=== PATIENT | male | born 1990 | race Caucasian/White ===

== ENCOUNTER 2024-06-08 18:50 | Emergency (ER) | payer OTHER, SELFPAY ==
[2024-06-08 18:58] VITALS: BP 148/79; PULSE 55; RESP 18; TEMP 36.2; O2SAT 97; BMI 28.1
--- NOTE | 2024-06-08 18:59 | ED_ITS ---
HPI - General Adult General Date Seen: 06/08/24 Chief complaint: Skin/Abscess/Foreign Body Stated complaint: left foot swollen toe; double in size Time Seen by Provider: 06/08/24 18:54 History of Present Illness HPI narrative: 33yo M with a h.o depression, panic attacks, hernia repair, tonsillectomy, but no history of diabetes or immunosuppression who presents to the ER today with redness, pain, and swelling of the skin of his left great toe, around the toenai l. He does have chronically short toenails and said he has had ingrown toenail for several years. Beginning last week and began to have some redness and swelling on the medial aspect of that toenail on the skin on the medial side. It has gotten steadily worse over the past several days. He has been trying to take care of at home by soaking it. He has noted that after soaking he has been able to express a little bit of clear drainage from under the skin along the medial edge of the toenail plate. Today he has noted that the redness is now spread from the medial and to the proximal end of the toenail plate and a little bit on the lateral side of the toenail plate as well. His whole to hold feels a little bit more swollen than normal. No redness spreading up his foot. He is not having any fever or chills. No known trauma. Related Data Previous Rx's ?Medication ?Instructions ?Recorded cephalexin 500 mg capsule 500 mg PO QID #28 caps 06/08/24 doxycycline monohydrate 100 mg 100 mg PO BID #14 caps 06/08/24 capsule Allergies Allergy/AdvReac Type Severity Reaction Status Date / Time amoxicillin AdvReac Unknown Vomiting Verified 06/08/24 18:57 [facility] Social History Smoking Status: Former smoker How often do you have a drink containing alcohol: never AUDIT-C Alcohol total score: 0 Non-prescribed substance use: denies use Exam Narrative: Exam Narrative: Constitutional: Appears well-developed and well-nourished. Active. Non-toxic appearing. Pleasant and polite. HENT: Head: Atraumatic. No signs of injury. Nose: No nasal discharge. Mouth/Throat: Mucous membranes are moist. Pharynx is normal. Tonsils symmetric. Uvula midline. Airway patent. Eyes: Conjunctivae normal and EOM are normal. Pupils are equal, round, and reactive to light. Right eye exhibits no discharge. Left eye exhibits no discharge. No icterus. Neck: Normal range of motion. Neck supple. No adenopathy. No stridor. Cardiovascular: Normal rate and regular rhythm. No murmur heard. No murmurs, rubs, or gallops. Brisk capillary refill normal DP pulses. Pulmonary/Chest: Effort normal. No stridor. No respiratory distress. No wheezes.No rhonchi. No rales. Musculoskeletal: Normal range of motion. No edema. No tenderness. No deformity. He does have redness and swelling of the skin adjacent to the toenail plate of his left great toe. There is predominant redness and swelling on the skin adjacent to the medial aspect of the toenail but also some redness and swelling on the proximal and lateral aspect of the toenail. When I palpate he is tender over the skin lateral to the toenail. I am able to express tiny drops of clear/yellow fluid. No other purulent fluid collection. No crepitus or gas in the soft tissue. There is no bruising. No so subungual hematoma Normal range of motion in the IP and MTP joint. Neurological: Alert. Normal strength. No cranial nerve deficit or sensory deficit. Coordination normal. GCS eye subscore is 4. GCS verbal subscore is 5. GCS motor subscore is 6. Skin: Skin is warm. No rash noted. Const: Vital Signs, click to edit/add: Vital Signs - 24 hr 06/08/24 18:58 Temperature 97.1 F L Pulse Rate [Pulse Oximeter] 55 L Respiratory Rate 18 Blood Pressure [Ri ght Upper Arm] 148/79 H Pulse Oximetry 97 Oxygen Delivery Me thod Room Air Course Vital Signs Vital signs: Initial Vital Signs Temperature 97.1 F L 06/08/24 18:58 Temperature Source Temporal Artery Scan 06/08/24 18:58 Pulse Rate 55 L 06/08/24 18:58 Pulse Rhythm Regular 06/08/24 18:58 Respiratory Rate 18 06/08/24 18:58 Blood Pressure 148/79 H 06/08/24 18:58 Blood Pressure Mean 102 06/08/24 18:58 Blood Pressure Position Sitting 06/08/24 18:58 Pulse Oximetry 97 08/18/24 18:58 Oxygen Delivery Method Room Air 06/08/24 18:58 Vital Signs Temperature 97.1 F L 06/08/24 18:58 Pulse Rate 55 L 06/08/24 18:58 Respiratory Rate 18 06/08/24 18:58 Blood Pressure 148/79 H 06/08/24 18:58 Pulse Oximetry 97 06/08/24 18:58 Oxygen Delivery Method Room Air 06/08/24 18:58 Temperature 97.1 F L 06/08/24 18:58 Pulse Rate 55 L 06/08/24 18:58 Respiratory Rate 18 06/08/24 18:58 Blood Pressure 148/79 H 06/08/24 18:58 Pulse Oximetry 97 06/08/24 18:58 Oxygen Delivery Method Room Air 06/08/24 18:58 Medications Administered Medications: Generic Name Dose Route Start Last Admin Trade Name Ezequiel PRN Reason Stop Dose Admin Cephalexin HCl 500 mg 06/08/24 19:25 06/08/24 19:32 Cephalexin 500 Mg Capsule PO 06/08/24 19:26 500 mg ONCE ONE Administration Doxycycline Hyclate 100 mg 06/08/24 19:25 06/08/24 19:32 Doxycycline Hyclate 100 Mg PO 06/08/24 19:26 100 mg ONCE ONE Administration Medical Decision Making MDM Narrative Medical decision making narrative: Pleasant 33-year-old generally healthy male presenting to the ER today with redness and swelling and pain affecting his left great toenail. Exam is consistent with paronychia. Patient does report that he has always kept his toenails trimmed very short for his entire life. He clearly has signs of an ingrown toenail there was a cause. At this point he is already spontaneously draining the purulent fruit for under the skin medial to his toenail plate. At this point I do not think he would benefit from an incision and drainage. Patient agrees and would like to avoid any surgical procedure over toenail removal, if possible. He is clinically nontoxic. Based on the amount of surrounding redness I do think he has a paronychia with cellulitis. Will put him on antibiotics. He does have a recent trip to [place] tells it with exposure to fresh water there. Therefore will cover him with cephalexin for typical skin estephania. Doxycycline for potential water borne estephania. First doses of antibiotics administered here in the ER. Prescription to his pharmacy. He will fill his additional meds and take his next dose is tomorrow morning. At this point I do not think he needs IV antibiotics. No history of trauma so I do not think there is a need for x-rays to look for fracture. Low likelihood of osteomyelitis. Discussed with the patient that there is a chance that this pus pocket will continue to recur and LEs it is incised and that he may potentially even need removal of his toenail for this to heal. However he would prefer to hold off on those procedures for now, and I think that is reasonable. Therefore will start him on antibiotics. Recommend follow-up with his primary care provider or with Podiatry after 72 hours if not dramatically improved. Return to the ER right away if worsening. He can also come back to the ER for recheck if he is not able to get into his primary or with Podiatry at the 72 hour heidy. Discharge Plan Discharge Clinical Impression: Paronychia Patient Disposition: Home, Self-Care Condition: Stable Instructions: Paronychia (ED) Additional Instructions: As we discussed, if your infection is not getting better within 72 hours please see your doctor or follow up with Podiatry. If you would like to see a oceanographer assistant in [place] you can call Dr. Harshal Hall at the [facility]. [phone] If you have worsening signs of infection such as spreading redness, worsening pain, high fevers, or any problems, come back to the ER right away. If you are not able to get follow-up with your doctor, you can come back to the ER any time for a recheck Prescriptions: New cephalexin 500 mg capsule 500 mg PO QID Qty: 28 0RF doxycycline monohydrate 100 mg capsule 100 mg PO BID Qty: 14 0RF Stand Alone Forms: [employer] Info Instructions
[2024-06-08] MEDS: DOXYCYCLINE HYCLATE 100 MG PO (19:32)
[2024-06-08] MEDS: cephALEXin 500 MG CAPSULE PO (19:32)
--- OUTSIDE RECORDS SUMMARY | 2024-06-08 19:47 | XMS_ITS | Clinical Summary ---
Author Organization [facility] Address [place], [place] [address] Care Team Providers Care Neonatal Pediatric Nurse Name Role Phone [facility] Primary Care Provider Unavailabl e Allergies Active Allergy Reactions Criticality Noted Date Comments Penicillins Vomiting 08/24/2019 Medications Medication Sig Dispensed Refills Start Date End Date Status famotidine (PEPCID) 20 mg tablet Take 1 Tablet (20 mg) by mouth once daily. 05/07/2023 Active Active Problems Problem Noted Date Diagnosed Date Substance abuse 09/18/2011 Moderate recurrent major depression 02/21/2010 Hydrocele, unspecified 04/19/2007 Attention deficit disorder without mention of hy peractivity 02/06/2007 Chronic tonsillitis Panic attacks/Depression Resolved Problems Problem Noted Date Diagnosed Date Resolved Date Tobacco use disorder 09/16/2007 023 Routine or child health check 10/23/2022 Immunizations Name Administration Dates Next Due DTP 05/22/1995, 2,07/31/1991,04/25/1991 ,1990 HIB PRP-T (ActHIB,Hiberix) 07/31/1991 Hepatitis B (Peds) 07/06/2004,05/29/2003, 002,1990 Influenza, IIV3 (Age >=3 years) 08/25/2005 MMR 02/09/2017,05/13/2002,07/01/1992 ,1990 Meningococcal Vaccine (Menactra) 08/25/2005 Oral Polio Vaccine 07/01/1992,07/31/1991, 991,1990 Td (Age >=7 Years) 05/13/2002,1990 Tdap 05/24/2023,04/30/2012 Social History Tobacco Use Types Packs/Day Years Used Date Smoking Tobacco: Former Cigarettes Q uit: 06/20/2012 Smokeless Tobacco: Never Tobacco Cessation:Counseling Given: Not Answered Comments:less than 1 pack a week Alcohol Use Standard Drinks/Week Comments No 0 (1 standard drink = 0.6 oz pur e alcohol) PHQ-2 Answer Date Recorded PHQ-2 TOTAL SCORE 0 05/24/2023 Social Connections Answer Date Recorded Frequency of Communication with Friends and Fami ly Not on file 10/22/2021 Financial Resource Strain Answer Date R ecorded Difficulty of Paying Living Expenses Not on file 10/22/2021 Difficulty of Paying Living Expenses Not on file 10/22/2021 Sex and Gender Information Value Date Recorded Sex Assigned at Not on file Gender Identity Not on file Sexual Orientation Not on file Obstetrics History Last Filed Vital Signs Vital Sign Reading Time Taken Comments Blood Pressure 118/72 12/17/2023 10:04 AM [employer] Pulse 70 12/17/2023 10:04 AM [employer] Temperature 36.6 ??C (97.9 ??F) 12/17/2023 10:[address] Respiratory Rate 14 12/01/2020 3:07 PM [employer] Oxygen Saturation 96% 12/17/2023 10:04 AM [employer] Inhaled Oxygen Concentration - - Weight 83.9 kg (185 lb) 12/17/2023 10:04 AM [employer] Height 176 cm (5' 9.29) 05/24/2023 2:39 PM CDT Body Mass Index 27.09 05/24/2023 2:39 PM CDT Plan of Treatment Health Maintenance Due Date Last Done Comments HIV for age 15-65 2005 Hepatitis C screening for age 18-79 2008 COVID-19 vaccine series ( season) 2023 BMI (ht and wt on same day) for age 18+ 05/24/2024 05/24/2023, 05/07/2023, 10/23/2022, Additional history exists Depression screening for age 12+ 05/24/2024 05/24/2023, 12/01/2020 Influenza for age 9-49 06/22/2024 08/25/2005 Tetanus booster 05/24/2033 05/24/2023, 04/21, 05/13/2002, Additional history exists Tdap Completed 05/24/2023, 04/30/2012 Pneumococcal series for age 6-64 Aged Out No longer eligible based on patient's age to complete this topic Advance Directives * Full Code (Latest Code Status on File) Date Activated Date Inactivated Comments 09/20/2007 9:48 AM 09/20/2007 2:55 PM Care Teams Neonatal Pediatric Nurse Relationship Specialty Start Date End Date Qian [facility] PCP - General 12/01/20
== END 2024-06-08 20:02 | disposition home or self-care (01) ==
LOC: ED 19:45
PROVIDERS: Emergency Provider Emergency Medicine
DX: L03.032 Cellulitis of left toe (principal)
CPT/HCPCS: 99282; 99283; A9270